=== PATIENT | female | born 1975 | race Caucasian/White ===

== ENCOUNTER 2017-04-28 21:29 | Emergency (ER) | payer SELFPAY ==
[2017-04-28 21:29] VITALS: BMI 27.5
[2017-04-28 22:36] VITALS: BP 104/65; PULSE 81; RESP 16; TEMP 97.9; O2SAT 99
[2017-04-28] MEDS ORDERED: Sodium Chloride 0.9% 1,000 ML IV STA (23:05)
[2017-04-28 23:31] LABS: SQUAMOUS EPITHIAL < 1 /hpf (0-5); URINE BACTERIA OCC (<OCC); URINE BILIRUBIN NEGATIVE (NEGATIVE); URINE BLOOD LARGE (NEGATIVE); URINE CLARITY CLEAR (Clear); URINE COLOR AMBER (YELLOW); URINE GLUCOSE (UA) NEG (Normal); URINE HYALINE CAST 0-2 /hpf (0-2); URINE LEUKOCYTE ESTERASE MOD Leu/uL (Negative); URINE NITRATE POSITIVE (NEGATIVE); URINE PROTEIN 30 mg/dL (NEGATIVE)
--- NOTE | 2017-04-28 23:34 | ED PDOC ---
HPI: Female Pain Time Seen by Provider: 04/28/17 22:39 Chief Complaint (Nursing): Abdominal Pain Chief Complaint (Provider): Urinary Symptoms History Per: Patient History/Exam Limitations: no limitations (x) Onset/Duration Of Symptoms: Days (x1) Current Symptoms Are (Timing): Still Present Associated Symptoms: Chills, Back Pain, Urinary Symptoms (hematuria, dysuria). denies: Nausea, Vomiting, Diarrhea, Constipation Additional Complaint(s): 42 year old female presents to ED with complaints of UTI symptoms x1 day and has a past medical history of multiple UTI's, asthma, and thrombocytopenia. (+) dysuria, back pain, chills, and hematuria. (-) nausea, vomiting, diarrhea, or constipation. Notes that taking Pyridium provided no relief of symptoms. PCP: BRIAN Past Medical History Reviewed: Historical Data, Nursing Documentation, Vital Signs Vital Signs: Last Vital Signs Temp 97.9 F 04/28/17 22:33 Pulse 81 04/28/17 22:33 Resp 16 04/28/17 22:33 BP 104/65 04/28/17 22:33 Pulse Ox 99 04/28/17 22:33 - Medical History PMH: Asthma, Depression (PT. SEEING A THERAPIST- NO MEDICATIONS ), Pneumonia Denies: Chronic Kidney Disease Other PMH: Thrombocytopenia - Surgical History Surgical History: Appendectomy, Denies: No Surg Hx Other surgeries: ingExploratory laparoscopy for internal bleeding - Family History Family History: States: No Known Family Hx - Social History Current smoker - smoking cessation education provided: No Ex-Smoker (has not smoked in the last 12 months): No Alcohol: None Drugs: Denies - Home Medications Home Medications: Ambulatory Orders Medication Instructions Recorded Albuterol HFA [Ventolin HFA 90 2 puff IH [id number] #0 puff 11/29/15 mcg/actuation (8 g)] Ciprofloxacin [Cipro] 500 mg PO Q12 #20 tab 04/29/17 - Allergies Allergies/Adverse Reactions: Allergies Allergy/AdvReac Type Severity Reaction Status Date / Time No Known Allergies Allergy Verified 11/29/15 17:11 Review of Systems ROS Statement: Except As Marked, All Systems Reviewed And Found Negative Constitutional: Positive for: Chills Gastrointestinal: Negative for: Nausea, Vomiting, Diarrhea, Constipation Genitourinary Female: Positive for: Dysuria, Hematuria Musculoskeletal: Positive for: Back Pain Physical Exam - Reviewed Nursing Documentation Reviewed: Yes Vital Signs Reviewed: Yes - Physical Exam Appears: Positive for: Non-toxic (well developed), In Acute Distress (moderate painful distress) Skin: Positive for: Normal Color, Warm, Dry Eye Exam: Positive for: Normal appearance ENT: Positive for: Normal ENT Inspection Neck: Positive for: Normal Cardiovascular/Chest: Positive for: Regular Rate, Rhythm. Negative for: Murmur Respiratory: Positive for: Normal Breath Sounds. Negative for: Respiratory Distress Gastrointestinal/Abdominal: Positive for: Soft, Tenderness (suprapubic tenderness). Negative for: Mass, Distended, Guarding, Rebound Back: Positive for: L CVA Tenderness, R CVA Tenderness (right CVA worse than left CVA). Negative for: Normal Inspection Extremity: Positive for: Normal ROM. Negative for: Deformity Neurologic/Psych: Positive for: Alert, Oriented. Negative for: Motor/Sensory Deficits - Laboratory Results Result Diagrams: 04/28/17 23:45 04/28/17 23:45 - ECG O2 Sat by Pulse Oximetry: 99 (RA) Pulse Ox Interpretation: Normal Medical Decision Making Medical Decision Makin Initial impression: dysuria, hematuria, and flank pain DDx: pyelonephritis, kidney sotnes, cystitis, UTI Initial plan: * CTA/ AP * Labs * NS IV * Toradol 15mg IVP * UCx * Re-eval Scribe Attestation: Documented by Flavia Downey acting as a scribe for Ramandeep Garrett MD. Scribe Attestation: All medical record entries made by the Scribe were at my direction and personally dictated by me. I have reviewed the chart and agree that the record accurately reflects my personal performance of the history, physical exam, medical decision making, and the department course for this patient. I have also personally directed, reviewed, and agree with the discharge instructions and disposition. Disposition - Clinical Impression Clinical Impression: UTI (urinary tract infection) - Disposition Disposition: Transfer of Care Disposition Time: 00:00 Condition: STABLE Prescriptions: Ciprofloxacin [Cipro] 500 mg PO Q12 #20 tab Print Language: [place]LAND[place] Patient Signed Over To: Praful Rivera Handoff Comments: Pending ER workup, reassessment and final ER dispo
[2017-04-28 23:49] LABS: BASO # 0.1 K/uL (0.0-0.2); BASO % 0.5 % (0.0-2.0); EOS # 0.3 K/uL (0.0-0.7); EOS % 2.1 % (0.0-4.0); HEMOGLOBIN 14.4 g/dL (12.0-16.0); LYMPH % 19.4 % (20.0-40.0); MEAN CORPUSCULAR HEMOGLOBIN 30.3 pg (27.0-31.0); MEAN CORPUSCULAR HGB CONC 34.4 g/dL (33.0-37.0); MEAN PLATELET VOLUME 8.1 fl (7.2-11.7); MONO % 6.5 % (0.0-10.0); NEUT % 71.5 % (50.0-75.0); NRBC % 0.1 % (0.0-0.0); RBC 4.75 Mil/uL (3.80-5.20); RED CELL DISTRIBUTION WIDTH 12.5 % (11.5-14.5); WHITE BLOOD COUNT 15.4 K/uL (4.8-10.8)
[2017-04-28 23:57] LABS: ALB/GLOB RATIO 1.4 (1.0-2.1); ALBUMIN 4.6 g/dL (3.5-5.0); ALT/SGPT 44 U/L (9-52); AST/SGOT 25 U/L (14-36); BLOOD UREA NITROGEN 12 mg/dl (7-17); CALCIUM 9.7 mg/dL (8.4-10.2); GFR AFRICAN-AMERICAN > 60; GFR NON-AFRICAN AMERICAN > 60
[2017-04-29] MEDS ORDERED: cefTRIAXone (Rocephin) 1 gm Inj ONE (00:33)
--- NOTE | 2017-04-29 00:33 | ED PDOC ---
- Laboratory Results Result Diagrams: 04/28/17 23:45 04/28/17 23:45 - ECG O2 Sat by Pulse Oximetry: 99 (RA) Medical Decision Making Medical Decision Makin Patient signed out to provider from Dr. Garrett pending CT. 0033 CT FINDINGS Lower thorax: The bilateral lung bases are clear. ABDOMEN: Liver: No acute findings Gallbladder and bile ducts: No acute finding. No calcified stones. No intra- extrahepatic biliary ductal dilation. Pancreas: Limited evaluation secondary to the lack of intravenous contrast. Spleen: No acute findings. Adrenals: No acute findings. Kidneys and ureters: No obstructing stones. No hydronephrosis. PELVIS: Bladder: Mural thickening is identified within the bladder, with trace perivesicular inflammatory change. Reproductive: Nodular contour to the uterus, suggesting fibroid disease. Appendix: Surgically absent. ABDOMEN and PELVIS: Stomach and bowel: No acute findings. Peritoneum: No acute findings. Lymph nodes: Limited evaluation without intravenous contrast. Vasculature: No aortic aneurysm. Bones: No acute fracture. IMPRESSION: No obstructive uropathy. Findings consistent with cystitis, as detailed above. 0045 Patient reports significant improvement in symptoms. Patient received dose of IV Rocephin in ED. Patient is stable for discharge home. Will follow up in clinic to see Dr. Brice and discharged with Cipro. Scribe Attestation: Documented by Flavia Downey acting as a scribe for Praful Rivera MD. Scribe Attestation: All medical record entries made by the Scribe were at my direction and personally dictated by me. I have reviewed the chart and agree that the record accurately reflects my personal performance of the history, physical exam, medical decision making, and the department course for this patient. I have also personally directed, reviewed, and agree with the discharge instructions and disposition. Disposition - Clinical Impression Clinical Impression: UTI (urinary tract infection) - POA Present On Arrival: None - Disposition Disposition: Routine/Home Disposition Time: 00:45 Condition: STABLE Prescriptions: Ciprofloxacin [Cipro] 500 mg PO Q12 #20 tab Instructions: Urinary Tract Infection in Women (ED) Print Language: PALAUAN
--- NOTE | 2017-04-29 00:34 | CT ---
EXAM: CT Abdomen and Pelvis Without Intravenous Contrast CLINICAL HISTORY: 42 years old, female; Pain; Abdominal pain; Flank; Left; Prior surgery; Surgery date: 6+ months; Surgery type: Appendectomy. ; Additional info: Flank pain uti R/O stone TECHNIQUE: Axial computed tomography images of the abdomen and pelvis without intravenous contrast. This CT exam was performed using one or more of the following dose reduction techniques: automated exposure control, adjustment of the mA and/or kV according to patient size, and/or use of iterative reconstruction technique. Coronal and sagittal reformatted images were created and reviewed. COMPARISON: No relevant prior studies available. FINDINGS: Lower thorax: The bilateral lung bases are clear. ABDOMEN: Liver: No acute findings Gallbladder and bile ducts: No acute finding. No calcified stones. No intra-extrahepatic biliary ductal dilation. Pancreas: Limited evaluation secondary to the lack of intravenous contrast. Spleen: No acute findings. Adrenals: No acute findings. Kidneys and ureters: No obstructing stones. No hydronephrosis. PELVIS: Bladder: Mural thickening is identified within the bladder, with trace perivesicular inflammatory change. Reproductive: Nodular contour to the uterus, suggesting fibroid disease. Appendix: Surgically absent. ABDOMEN and PELVIS: Stomach and bowel: No acute findings. Peritoneum: No acute findings. Lymph nodes: Limited evaluation without intravenous contrast. Vasculature: No aortic aneurysm. Bones: No acute fracture. IMPRESSION: No obstructive uropathy. Findings consistent with cystitis, as detailed above.
== END 2017-04-29 01:40 | disposition home or self-care (01) ==
LOC: H.ER 21:29
DX: N39.0 Urinary tract infection, site not specified (principal); Z90.49 Acquired absence of other specified parts of digestive tract; Z98.890 Other specified postprocedural states

== ENCOUNTER 2018-05-06 18:15 | Emergency (ER) | payer SELFPAY ==
[2018-05-06 18:16] VITALS: BMI 27.5
[2018-05-06 18:52] VITALS: BP 102/58; PULSE 88; RESP 16; O2SAT 100
--- NOTE | 2018-05-06 21:08 | ED PDOC ---
HPI: Abdomen Time Seen by Provider: 05/06/18 20:50 Chief Complaint (Nursing): Female Genitourinary Chief Complaint (Provider): pelvic pain History Per: Patient History/Exam Limitations: no limitations Onset/Duration Of Symptoms: Days (2) Current Symptoms Are (Timing): Still Present Location Of Pain/Discomfort: RLQ Additional Complaint(s): 43 y/o female presents for evaluation of right lower pelvic pain x 2 days. Patient states pain radiates to right groin. Associated different "odor" to vaginal area, of which she used Metrogel and smell has since improved, now notes white vaginal discharge. Has history of ovarian cysts; states feels similar. Denies fever, nausea/vomiting, chest pain, shortness of breath, palpitations, changes in bowel movements, urinary symptoms, vaginal bleeding. Patient sexually active with one partner; no history of STDs. Past Medical History Reviewed: Historical Data, Nursing Documentation, Vital Signs Vital Signs: Last Vital Signs Temp 98.3 F 05/06/18 18:48 Pulse 88 05/06/18 18:48 Resp 16 05/06/18 18:48 BP 102/58 L 05/06/18 18:48 Pulse Ox 100 05/06/18 23:10 - Medical History PMH: Asthma, Depression (PT. SEEING A THERAPIST- NO MEDICATIONS ), Pneumonia Denies: Chronic Kidney Disease - Surgical History Surgical History: Appendectomy, - Family History Family History: States: No Known Family Hx - Home Medications Home Medications: Ambulatory Orders Medication Instructions Recorded Albuterol HFA [Ventolin HFA 90 2 puff IH [id number] #0 puff 11/29/15 mcg/actuation (8 g)] Ciprofloxacin [Cipro] 500 mg PO Q12 #20 tab 04/29/17 - Allergies Allergies/Adverse Reactions: Allergies Allergy/AdvReac Type Severity Reaction Status Date / Time No Known Allergies Allergy Verified 05/06/18 18:47 Review of Systems ROS Statement: Except As Marked, All Systems Reviewed And Found Negative Gastrointestinal: Positive for: Abdominal Pain (rlq) Physical Exam - Reviewed Nursing Documentation Reviewed: Yes Vital Signs Reviewed: Yes - Physical Exam Appears: Positive for: Well, Non-toxic, No Acute Distress Head Exam: Positive for: ATRAUMATIC, NORMAL INSPECTION, NORMOCEPHALIC Skin: Positive for: Normal Color Eye Exam: Positive for: Normal appearance ENT: Positive for: Normal ENT Inspection Cardiovascular/Chest: Positive for: Regular Rate, Rhythm Respiratory: Positive for: Normal Breath Sounds Gastrointestinal/Abdominal: Positive for: Bowel Sounds, Soft, Tenderness (right pelvic tenderness) Pelvic Exam: Positive for: External Exam Normal, No Cerv. 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 EXAM: US Pelvis, Transvaginal CLINICAL HISTORY: 43 years old, female; Pain; Pelvic pain; Additional info: Right pelvic pain TECHNIQUE: Real-time transvaginal pelvic ultrasound (complete) with image documentation. Transvaginal imaging was used for better evaluation of the endometrium and adnexa. COMPARISON: No relevant prior studies available. FINDINGS: Uterus/cervix: The uterus measures 7.8 x 3.2 x 4.6 cm. No masses. The endometrium is normal in size and appearance, measuring 8 mm in thickness. Right ovary: The right ovary measures 2.7 x 1.7 x 2.6 cm. Normal flow is identified by color Doppler. A cyst is seen measuring 2.0 x 1.1 x 2.1 cm. Normal blood flow. Left ovary: The left ovary measures 1.8 x 1.1 x 1.6 cm. Normal flow is identified by color Doppler. No masses or significant dominant cysts. Normal blood flow. This Free fluid: There is no evidence of free pelvic fluid. IMPRESSION: No acute findings. Right ovarian cyst measuring up to 2.1 cm. Disposition - Clinical Impression Clinical Impression: Vulvovaginal candidiasis, Ovarian cyst - Patient ED Disposition Is Patient to be Admitted: No Counseled Patient/Family Regarding: Studies Performed, Diagnosis, Need For Followup - Disposition [facility]errals[facility] Disposition: Routine/Home Disposition Time: 23:39 Condition: IMPROVED Instructions: Vulvovaginal Yeast Infection, Ovarian Cysts Forms: [facility] (French)
[2018-05-06 22:35] LABS: BASO # 0.1 K/uL (0.0-0.2); BASO % 0.7 % (0.0-2.0); EOS # 0.3 K/uL (0.0-0.7); EOS % 3.6 % (0.0-4.0); HEMOGLOBIN 13.8 g/dL (12.0-16.0); LYMPH # 3.6 K/uL (1.0-4.3); LYMPH % 40.5 % (20.0-40.0); MEAN CELL VOLUME 88.8 fl (81.0-99.0); MEAN CORPUSCULAR HEMOGLOBIN 30.6 pg (27.0-31.0); MEAN CORPUSCULAR HGB CONC 34.5 g/dL (33.0-37.0); MONO # 0.6 K/uL (0.0-0.8); MONO % 7.3 % (0.0-10.0); NEUT # 4.2 K/uL (1.8-7.0); NEUT % 47.9 % (50.0-75.0); NRBC % 0.1 % (0.0-0.0); RBC 4.5 Mil/uL (3.80-5.20); RED CELL DISTRIBUTION WIDTH 12.9 % (11.5-14.5); WHITE BLOOD COUNT 8.8 K/uL (4.8-10.8)
[2018-05-06 22:48] LABS: ALB/GLOB RATIO 1.4 (1.0-2.1); ALBUMIN 4.1 g/dL (3.5-5.0); ALT/SGPT 29 U/L (9-52); AST/SGOT 29 U/L (14-36); BLOOD UREA NITROGEN 13 mg/dl (7-17); CALCIUM 9.1 mg/dL (8.4-10.2); GFR AFRICAN-AMERICAN > 60; GFR NON-AFRICAN AMERICAN > 60
[2018-05-06] MEDS ORDERED: Fluconazole 150 MG TAB PO ONE (23:37)
[2018-05-07 00:15] VITALS: TEMP 98.1
--- NOTE | 2018-05-07 11:26 | US ---
Date of service: 05/06/2018 HISTORY: right pelvic pain COMPARISON: None available. TECHNIQUE: Transvaginal FINDINGS: UTERUS: Measures 7.8 x 3.2 x 4.6 cm. Normal in size and appearance. No fibroid or other mass lesion seen. ENDOMETRIUM: Measures 8 mm in diameter. Unremarkable. CERVIX: No cervical abnormality identified. RIGHT OVARY: Measures 2.7 x 1.7 x 2.6 cm. No solid mass. Normal flow. Simple cyst, 2.0 x 1.1 x 2.1 cm. LEFT OVARY: Measures 1.8 x 1.1 x 1.6 cm. No solid mass. Normal flow. FREE FLUID: No significant free fluid noted. OTHER FINDINGS: None. IMPRESSION: Simple 2.1 cm right ovarian cyst. Otherwise unremarkable examination. No evidence of ovarian torsion. The preliminary findings for this examination were reported by [facility] at 10:51 p.m. on 05/06/2018. There is concurrence of this report with the preliminary findings.
== END 2018-05-07 00:16 | disposition home or self-care (01) ==
LOC: H.ER 18:15
DX: R10.2 Pelvic and perineal pain (principal); N83.201 Unspecified ovarian cyst, right side; B37.3 Candidiasis of vulva and vagina
CPT/HCPCS: 76830; 80053; 81025; 85025; 87070; 87491; 87591; 99284; J1885

== ENCOUNTER 2018-07-29 17:59 | Emergency (ER) | payer SELFPAY ==
[2018-07-29 17:59] VITALS: BMI 27.5
[2018-07-29 18:10] VITALS: BP 96/62; PULSE 65; RESP 16; TEMP 98.2; O2SAT 99
[2018-07-29 19:32] LABS: BASO % 0.4 % (0.0-2.0); EOS # 0.5 K/uL (0.0-0.7); EOS % 6.3 % (0.0-4.0); HEMOGLOBIN 14.5 g/dL (12.0-16.0); LYMPH % 39.7 % (20.0-40.0); MEAN CELL VOLUME 88.6 fl (81.0-99.0); MEAN CORPUSCULAR HEMOGLOBIN 30.8 pg (27.0-31.0); MEAN CORPUSCULAR HGB CONC 34.8 g/dL (33.0-37.0); MEAN PLATELET VOLUME 8.3 fl (7.2-11.7); MONO # 0.6 K/uL (0.0-0.8); MONO % 7.7 % (0.0-10.0); NEUT # 3.5 K/uL (1.8-7.0); NEUT % 45.9 % (50.0-75.0); RBC 4.71 Mil/uL (3.80-5.20); RED CELL DISTRIBUTION WIDTH 12.3 % (11.5-14.5); WHITE BLOOD COUNT 7.6 K/uL (4.8-10.8)
[2018-07-29] MEDS ORDERED: Sodium Chloride 0.9% 1,000 ML IV STA (19:43)
[2018-07-29 19:50] LABS: SQUAMOUS EPITHIAL 7 /hpf (0-5); URINE BILIRUBIN NEGATIVE (NEGATIVE); URINE BLOOD SMALL (NEGATIVE); URINE CLARITY SLIGHTY-CLOUDY (Clear); URINE COLOR YELLOW (YELLOW); URINE GLUCOSE (UA) NEG (Normal); URINE LEUKOCYTE ESTERASE TRACE Leu/uL (Negative); URINE PROTEIN NEGATIVE (NEGATIVE); URINE UROBILINOGEN 0.2-1.0 mg/dL (0.2-1.0)
[2018-07-29 19:51] LABS: ALB/GLOB RATIO 1.2 (1.0-2.1); ALBUMIN 4.2 g/dL (3.5-5.0); ALT/SGPT 30 U/L (9-52); AST/SGOT 33 U/L (14-36); BLOOD UREA NITROGEN 19 mg/dl (7-17); CALCIUM 9.3 mg/dL (8.4-10.2); GFR NON-AFRICAN AMERICAN > 60; LIPASE 97 U/L (23-300)
--- NOTE | 2018-07-29 21:21 | ED PDOC ---
HPI: Abdomen Time Seen by Provider: 07/29/18 19:13 Chief Complaint (Nursing): Abdominal Pain Chief Complaint (Provider): Abdominal Pain History Per: Patient History/Exam Limitations: no limitations Onset/Duration Of Symptoms: Days (x2) Current Symptoms Are (Timing): Still Present Additional Complaint(s): 43 y/o female with a PMHx of ovarian cysts and IBS presents to the ED for evaluation of abdominal pain, onset 2 days ago. Patient reports experience is different of those with IBS. Patient states she has an appetite but her abdominal pain worsens after eating. Patient reports abdominal pain is located in the right upper quadrant and radiates to the back. Otherwise, patient denies fever, cough, shortness of breath and dysuria. Patient additionally reports of loose bowel movements but states they are normal with IBS PMD: [facility] Past Medical History Reviewed: Historical Data, Nursing Documentation, Vital Signs Vital Signs: Last Vital Signs Temp 98.2 F 07/29/18 18:08 Pulse 65 07/29/18 18:08 Resp 16 07/29/18 18:08 BP 96/62 L 07/29/18 18:08 Pulse Ox 99 07/29/18 18:08 - Medical History PMH: Asthma, Depression (PT. SEEING A THERAPIST- NO MEDICATIONS ), Pneumonia Denies: Chronic Kidney Disease Other PMH: Ovarian Cysts and IBS - Surgical History Surgical History: Appendectomy, (x1) Other surgeries: Right Ovarian Cyst Removal - Family History Family History: States: Unknown Family Hx - Home Medications Home Medications: Ambulatory Orders Medication Instructions Recorded Albuterol HFA [Ventolin HFA 90 2 puff IH [id number] #0 puff 11/29/15 mcg/actuation (8 g)] Ciprofloxacin [Cipro] 500 mg PO Q12 #20 tab 04/29/17 Dicyclomine [Bentyl] 20 mg PO Q12 PRN #20 tab 07/29/18 - Allergies Allergies/Adverse Reactions: Allergies Allergy/AdvReac Type Severity Reaction Status Date / Time No Known Allergies Allergy Verified 07/29/18 18:08 Review of Systems ROS Statement: Except As Marked, All Systems Reviewed And Found Negative Constitutional: Negative for: Fever Respiratory: Negative for: Cough, Shortness of Breath Gastrointestinal: Positive for: Abdominal Pain Genitourinary Female: Negative for: Dysuria Physical Exam - Reviewed Nursing Documentation Reviewed: Yes Vital Signs Reviewed: Yes - Physical Exam Appears: Positive for: No Acute Distress Head Exam: Positive for: ATRAUMATIC, NORMOCEPHALIC Skin: Positive for: Normal Color, Warm, Dry Eye Exam: Positive for: Normal appearance, EOMI, PERRL Neck: Positive for: Normal, Painless ROM Cardiovascular/Chest: Positive for: Regular Rate, Rhythm. Negative for: Murmur Respiratory: Positive for: Normal Breath Sounds. Negative for: Respiratory Distress Gastrointestinal/Abdominal: Positive for: Normal Exam, Soft, Tenderness (RUQ and Epigastric Tenderness. (-) Juan's Positive). Negative for: Mass, Guarding, Rebound Back: Positive for: Normal Inspection. Negative for: L CVA Tenderness, R CVA Tenderness, Vertebral Tenderness Extremity: Positive for: Normal ROM. Negative for: Pedal Edema, Deformity Neurologic/Psych: Positive for: Alert, Oriented. Negative for: Motor/Sensory Deficits - Laboratory Results Result Diagrams: 07/29/18 19:27 07/29/18 19:27 - ECG O2 Sat by Pulse Oximetry: 99 (RA) Pulse Ox Interpretation: Normal Medical Decision Making Medical Decision Making: Time: 1934 Impression: 43 y/o female with abdominal pain, in setting of ovarian cysts. Plan: -- CMP -- Lipase -- ED Urine -- ED Urine Dipstick -- CBC with differentials -- Sodium Chloride IV 1000 mls/hr -- Pepcid 20 mg IV -- Toradol 30 mg IV -- Heplock Insertion -- Urinalysis -- Gallbladder and Pancreas US -- Transvaginal US Time: 2215 GALLBLADDER AND PANCREAS US RESULTS IMPRESSION: Unremarkable study. Time: 2219 TRANSVAGINAL US IMPRESSION: Unremarkable study Time: 2243 -- Patient reports improvement of symptoms. Discussed benign finding on US and lab work that is not indicative for further imaging such as CT. Patient is amenable for trial outpatient Bentyl. Patient advised to return for any worsening symptoms. Patient is now stable for discharge with a diagnosis of abdominal pain. _ Scribe Attestation: Documented by Cortes Buckley, acting as a scribe Ata Rivera MD. Provider Scribe Attestation: All medical record entries made by the Scribe were at my direction and personally dictated by me. I have reviewed the chart and agree that the record accurately reflects my personal performance of the history, physical exam, medical decision making, and the department course for this patient. I have also personally directed, reviewed, and agree with the discharge instructions and disposition. Disposition - Clinical Impression Clinical Impression: Abdominal pain - Patient ED Disposition Is Patient to be Admitted: No Counseled Patient/Family Regarding: Studies Performed, Diagnosis, Rx Given - Disposition Disposition: Routine/Home Disposition Time: 22:44 Condition: STABLE Prescriptions: Dicyclomine [Bentyl] 20 mg PO Q12 PRN #20 tab PRN Reason: abdominal pain Instructions: [place] Forms: [facility] ([place]an)
--- NOTE | 2018-07-30 10:10 | US ---
Date of service: 07/29/2018 HISTORY: RUQ pain COMPARISON: None. TECHNIQUE: Sonographic evaluation of the right upper quadrant of the abdomen. FINDINGS: LIVER: Measures 13.9 cm in length. Normal echogenicity of the liver parenchyma. No mass. No intrahepatic bile duct dilatation. Normal hepatopetal portal venous flow. GALLBLADDER: Unremarkable. No gallstones. COMMON BILE DUCT: Measures mm. No stones. No dilatation. PANCREAS: 3 RIGHT KIDNEY: Measures cm in length. 9.8 AORTA: No aneurysmal dilatation. IVC: Unremarkable. OTHER FINDINGS: None . IMPRESSION: Unremarkable examination. No evidence of cholelithiasis or cholecystitis. The preliminary findings for this examination were reported by [facility] at 10:16 p.m. on 07/29/2018. There is concurrence of this report with the preliminary findings.
--- NOTE | 2018-07-30 14:50 | US ---
Date of service: 07/29/2018 HISTORY: abd pain hx ov cysts COMPARISON: None available. TECHNIQUE: Transvaginal FINDINGS: UTERUS: Measures 6.9 x 3.4 x 4.5 cm. Normal in size and appearance. No fibroid or other mass lesion seen. ENDOMETRIUM: Measures 5 mm in diameter. Unremarkable. CERVIX: No cervical abnormality identified. RIGHT OVARY: Measures 1.9 x 1.1 x 1.7 cm. No solid mass. Normal flow. LEFT OVARY: Measures 1.7 x 1.2 x 1.5 cm. No solid mass. Normal flow. FREE FLUID: No significant free fluid noted. OTHER FINDINGS: None. IMPRESSION: Unremarkable pelvic ultrasound examination. The preliminary findings for this examination were reported by [facility] at 10:20 p.m. on 07/29/2018. There is concurrence of this report with the preliminary findings.
== END 2018-07-29 23:00 | disposition home or self-care (01) ==
LOC: H.ER 17:59
DX: R10.9 Unspecified abdominal pain (principal); K58.9 Irritable bowel syndrome, unspecified; N83.209 Unspecified ovarian cyst, unspecified side
CPT/HCPCS: 76705; 76830; 80053; 81003; 81025; 83690; 85025; 96374; 96375; 99284; J1885; J7030

== ENCOUNTER 2018-08-04 19:31 | Emergency (ER) | payer SELFPAY ==
[2018-08-04 19:31] VITALS: BMI 27.5
[2018-08-04 19:54] VITALS: RESP 16
[2018-08-04] MEDS ORDERED: Iohexol 240 (50 ml) PO ONE (21:31)
--- NOTE | 2018-08-04 21:34 | ED PDOC ---
HPI: Abdomen Time Seen by Provider: 08/04/18 21:13 Chief Complaint (Nursing): Abdominal Pain Chief Complaint (Provider): abdominal pain History Per: Patient History/Exam Limitations: no limitations Onset/Duration Of Symptoms: Days (1 week) Current Symptoms Are (Timing): Still Present Location Of Pain/Discomfort: RUQ, Epigastric Quality Of Discomfort: Cramping, "Pain" Additional Complaint(s): 43 y/o female presents for evaluation of upper abdominal pain x 1 week. Patient states she was seen for same, had normal blood work and ultrasounds and was prescribed medications with instructions to follow up with GI orto return to ED for continued symptoms. Patient states she has not yet been able to find a GI and pain persisted so she decided to come to ED. Patient states she has a history of IBS and H.pylori but that this pain is different. Denies fever, nausea/vomiting, chest pain, shortness of breath, palpitations, changes in bowel movements, urinary symptoms, vaginal bleeding/discharge. Has been taking Be ntyl, Carafate, and Pantoprazole with little improvement. Past Medical History Reviewed: Historical Data, Nursing Documentation, Vital Signs Vital Signs: Last Vital Signs Temp 98.5 F 08/04/18 19:50 Pulse 56 L 08/04/18 19:50 Resp 16 08/04/18 19:50 BP 109/65 08/04/18 19:50 Pulse Ox 98 08/04/18 19:50 - Medical History PMH: Asthma, Depression (PT. SEEING A THERAPIST- NO MEDICATIONS ), Pneumonia Denies: Chronic Kidney Disease - Surgical History Surgical History: Appendectomy, (x1) - Family History Family History: States: Unknown Family Hx - Home Medications Home Medications: Ambulatory Orders Medication Instructions Recorded Albuterol HFA [Ventolin HFA 90 2 puff IH [id number] #0 puff 11/29/15 mcg/actuation (8 g)] Ciprofloxacin [Cipro] 500 mg PO Q12 #20 tab 04/29/17 Dicyclomine [Bentyl] 20 mg PO Q12 PRN #20 tab 07/29/18 - Allergies Allergies/Adverse Reactions: Allergies Allergy/AdvReac Type Severity Reaction Status Date / Time No Known Allergies Allergy Verified 08/04/18 19:49 Review of Systems ROS Statement: Except As Marked, All Systems Reviewed And Found Negative Gastrointestinal: Positive for: Abdominal Pain Physical Exam - Reviewed Nursing Documentation Reviewed: Yes Vital Signs Reviewed: Yes - Physical Exam Appears: Positive for: Well, Non-toxic, No Acute Distress Head Exam: Positive for: ATRAUMATIC, NORMAL INSPECTION, NORMOCEPHALIC Skin: Positive for: Normal Color Eye Exam: Positive for: Normal appearance ENT: Positive for: Normal ENT Inspection Cardiovascular/Chest: Positive for: Regular Rate, Rhythm Respiratory: Positive for: Normal Breath Sounds Gastrointestinal/Abdominal: Positive for: Bowel Sounds, Soft, Tenderness (ruq, epigastric, luq) Back: Positive for: Normal Inspection Extremity: Positive for: Normal ROM Neurologic/Psych: Positive for: Alert, Oriented (x3) - Laboratory Results Result Diagrams: 08/04/18 22:10 08/04/18 22:10 - ECG O2 Sat by Pulse Oximetry: 98 - Progress ED Course And Treament: labs, urine, CT abd/pelvis USArad impression: No evidence of acute abdominal or pelvic pathology Patient educated on findings, discharged with instructions to follow up GI Advised to continue current medications Return precautions given Disposition - Clinical Impression Clinical Impression: Abdominal pain - Patient ED Disposition Is Patient to be Admitted: No Counseled Patient/Family Regarding: Studies Performed, Diagnosis, Need For Followup - Disposition Referrals: Ravindra Zamora MD, PhD [Staff Provider] - [facility] [Outside] Disposition: Routine/Home Disposition Time: 00:52 Condition: IMPROVED Instructions: Acute Abdomen (Belly Pain), Adult (DC)
[2018-08-04 21:53] LABS: SQUAMOUS EPITHIAL 1 /hpf (0-5); URINE BILIRUBIN NEGATIVE (NEGATIVE); URINE BLOOD SMALL (NEGATIVE); URINE CLARITY SLIGHTY-CLOUDY (Clear); URINE COLOR YELLOW (YELLOW); URINE GLUCOSE (UA) NEG (Normal); URINE LEUKOCYTE ESTERASE NEG Leu/uL (Negative); URINE PROTEIN NEGATIVE (NEGATIVE); URINE UROBILINOGEN 0.2-1.0 mg/dL (0.2-1.0)
[2018-08-04 22:22] LABS: BASO # 0.1 K/uL (0.0-0.2); BASO % 0.8 % (0.0-2.0); EOS # 0.3 K/uL (0.0-0.7); EOS % 4.2 % (0.0-4.0); HEMOGLOBIN 13.9 g/dL (12.0-16.0); LYMPH # 3.8 K/uL (1.0-4.3); LYMPH % 45.7 % (20.0-40.0); MEAN CELL VOLUME 88.8 fl (81.0-99.0); MEAN CORPUSCULAR HEMOGLOBIN 30.9 pg (27.0-31.0); MEAN CORPUSCULAR HGB CONC 34.8 g/dL (33.0-37.0); MEAN PLATELET VOLUME 7.9 fl (7.2-11.7); MONO # 0.6 K/uL (0.0-0.8); MONO % 7.2 % (0.0-10.0); NEUT # 3.5 K/uL (1.8-7.0); NEUT % 42.1 % (50.0-75.0); RBC 4.51 Mil/uL (3.80-5.20); RED CELL DISTRIBUTION WIDTH 12.4 % (11.5-14.5); WHITE BLOOD COUNT 8.4 K/uL (4.8-10.8)
[2018-08-04 22:30] LABS: ALB/GLOB RATIO 1.3 (1.0-2.1); ALBUMIN 4.2 g/dL (3.5-5.0); ALT/SGPT 27 U/L (9-52); AST/SGOT 22 U/L (14-36); BLOOD UREA NITROGEN 13 mg/dl (7-17); CALCIUM 9.4 mg/dL (8.4-10.2); GFR NON-AFRICAN AMERICAN > 60; LIPASE 82 U/L (23-300)
[2018-08-04] MEDS ORDERED: Sodium Chloride 0.9% 50 ML IV ONE (23:30)
[2018-08-04] MEDS ORDERED: Iohexol 300 100 ML IJ ONE (23:30)
[2018-08-05 01:17] VITALS: BP 102/70; PULSE 50; TEMP 98; O2SAT 100
--- NOTE | 2018-08-05 13:55 | CT ---
Date of service: 08/04/2018 PROCEDURE: CT Abdomen and Pelvis with contrast HISTORY: Abdominal pain COMPARISON: 04/28/2017. TECHNIQUE: CT scan of the abdomen and pelvis was performed after t administration of intravenous contrast. Oral contrast was administered. Coronal and sagittal reformatted images were obtained. Contrast dose: 95 mL Omnipaque 300 Radiation dose: Total exam DLP = 315.95 mGy-cm. This CT exam was performed using one or more of the following dose reduction techniques: Automated exposure control, adjustment of the mA and/or kV according to patient size, and/or use of iterative reconstruction technique. FINDINGS: LOWER THORAX: The visualized lungs are clear. LIVER: Fatty liver. No gross lesion or ductal dilatation. GALLBLADDER AND BILE DUCTS: No calcified gallstones. PANCREAS: Normal in size with homogeneous enhancement. No gross lesion or ductal dilatation. SPLEEN: Normal in size and appearance. ADRENALS: No discrete nodule. KIDNEYS AND URETERS: Normal in size with homogeneous enhancement. VASCULATURE: No aortic aneurysm. BOWEL: The small bowel loops are normal in caliber. The colon is unremarkable. No bowel wall thickening or obstruction. APPENDIX: Not distinctly identified. No inflammatory changes in the right lower quadrant. PERITONEUM: No free fluid. No free air. LYMPH NODES: No enlarged lymph nodes. BLADDER: Partially decompressed. REPRODUCTIVE: The uterus is normal in size. BONES: No acute fracture. Within normal limits for the patient's age. OTHER FINDINGS: None. IMPRESSION: No acute abdominal or pelvic abnormality. A preliminary report was provided by [employer].
== END 2018-08-05 01:10 | disposition home or self-care (01) ==
LOC: H.ER 19:31
DX: R10.11 Right upper quadrant pain (principal)
CPT/HCPCS: 74177; 80053; 81003; 81025; 83690; 85025; 96374; 99283; J1885; Q9966; Q9967